=== PATIENT | male | born 1960 | race African-American/Black ===

== ENCOUNTER 2021-04-26 18:25 | Emergency (ER) | payer OTHER ==
[~2021-04-26] VITALS: Ht 167.6 cm; Wt 108.9 kg
--- NOTE | ~2021-04-26 | EMS ---
[facility] [address] [place] [address] EMS Patient Care Report Name: STEPHANIE KEYES Room #: REG FABIO Le#: [id number] Admission: 04/26/21 Attend Phys: Discharge: Date of : 62 Report #: [id number] THIS REPORT FOR: //name// Report Transmitted: 04/26/2021 18:21 EMS Care Summary [place], [place]/[facility] Incident [id number] @ 04/26/2021 17:50 Incident Location [facility] [address] [place] [address] Patient STEPHANIE KEYES Male, 60 Years 1960 Patient Address unknown Patient History None Reported, Patient Allergies No known allergies, Patient Medications None Reported, Chief Complaint alt loc Disposition Transported No Lights/[place] Dispatch Reason Unknown Problem/Person Down Transported To [facility] Narrative ems met [facility] on scene. [facility] stated pt was naked standing alongside [address]. pt found standing upright in driveway and alert. pt alert and confused gcs 14. pt stated he is hot. pt is naked and is holding a pair of shorts in front of his bottom half. pt has no other complaints. pt is only alert to himself. pt did not present consistent with the use of any altering substance. pt was [facility] [address] [place] [address] EMS Patient Care Report Name: STEPHANIE KEYES Room #: REG FABIO Le#: [id number] Admission: 04/26/21 Attend Phys: Discharge: Date of : 62 Report #: [id number] covered with a blanket. pt agreed to be transported to the hospital. [facility] stated they will be performing a cit on pt. pt walked to ambulance. pt was transferred onto ems cot and was secured in a semi fowlers position without incident. pt was loaded into ambulance. pt was transported non emergent. transport was uneventful and pt rested on ems cot. [facility] advised ems that they spoke to people close to pt and was informed pt has an extensive pcp hx. pt care was transferred to appropriate staff and ems goes back in service. pts id was left with staff. Initial Vitals @18:07P: 116,R: 20,BP: 130/66,Pain: 0/10,GCS: 14,Glucose: 90,SpO2: 100,Revised Trauma: 12, @18:20P: 116,R: 20,BP: 124/66,GCS: 14,SpO2: 98,Revised Trauma: 12, Assessments @17:58MENTAL:Confused,SKIN:No Abnormalities,HEENT:Head/Face: No Abnormalities,Eyes: No Abnormalities,Neck/Airway: No Abnormalities,LUNG SOUNDS:General: No Abnormalities,Left Upper: No Abnormalities,Right Upper: No Abnormalities,Left Lower: No Abnormalities,Right Lower: No Abnormalities,ABDOMEN:General: No Abnormalities,Left Upper: No Abnormalities,Right Upper: No Abnormalities,Left Lower: No Abnormalities,Right Lower: No Abnormalities,PELVIS//GI:No Abnormalities,EXTREMITIES:Left Arm: No Abnormalities,Right Arm: No Abnormalities,Left Leg: No Abnormalities,Right Leg: No Abnormalities,PULSE:NEURO:No Abnormalities,@18:09MENTAL:No Abnormalities,SKIN:No Abnormalities,HEENT:Head/Face: No Abnormalities,Eyes: No Abnormalities,Neck/Airway: No Abnormalities,LUNG SOUNDS:General: No Abnormalities,Left Upper: No Abnormalities,Right Upper: No Abnormalities,Left Lower: No Abnormalities,Right Lower: No Abnormalities,ABDOMEN:General: No Abnormalities,Left Upper: No Abnormalities,Right Upper: No Abnormalities,Left Lower: No Abnormalities,Right Lower: No Abnormalities,PELVIS//GI:No Abnormalities,EXTREMITIES:Left Arm: No Abnormalities,Right Arm: No Abnormalities,Left Leg: No Abnormalities,Right Leg: No Abnormalities,PULSE:NEURO:No Abnormalities, Impression Altered Mental Status Procedures @17:58ALS AssessmentResponse: UnchangedSucceeded Timeline 17:50,Call Received 17:50,Dispatch Notified 17:50,Dispatched 17:51,En Route 17:57,[place] [address] EMS Patient Care Report Name: STEPHANIE KEYES Room #: REG FABIO Le#: [id number] Admission: 04/26/21 Attend Phys: Discharge: Date of : 62 Report #: [id number] 17:58,At Patient 17:58,ALS Assessment,Response: UnchangedSucceeded, 18:07,BP: 130/66 M,PULSE: 116,RR: 20 R,SPO2: 100 Ox,ETCO2: ,B,PAIN: 0,GCS: 14, 18:11,Depart Scene 18:20,BP: 124/66 M,PULSE: 116,RR: 20 R,SPO2: 98 Ox,ETCO2: ,BG: ,PAIN: ,GCS: 14, 18:21,At Destination 18:38,Call Closed Disclaimer [email or web address] Copyright 2020 [email or web address] This EMS Care Summary contains data elements from the applicable legal record (which may be displayed differently). It is designed to provide pertinent information for the following purposes: continuity of care, clinical quality, and state data reporting. The complete legal record is available to ED staff and administrators of the receiving hospital in [employer]'s Patient Tracker. All data is provided "as is."
[2021-04-26 18:54] LABS: ABSOLUTE NEUTROPHILS 5.1 thou/uL (1.4-8.2); BASOPHILS 0.5 % (0.0-2.0); EOSINOPHILS 4.2 % (0.0-3.0); HEMATOCRIT 45.9 % (42.0-52.0); HEMOGLOBIN 15.4 gm/dL (14.0-18.0); MCH 30.8 pg (26.0-34.0); MCHC 33.6 g/dL (28.0-37.0); MCV 91.6 fL (80.0-100.0); MONOCYTES 6.3 % (1.0-8.0); PLATELET COUNT 245 thou/uL (150-400); RBC 5.01 mil/uL (4.50-6.00); RDW 14.1 % (10.5-14.5); WBC 6.2 thou/uL (4.0-11.0)
[2021-04-26 18:59] LABS: URINE BILIRUBIN 2+ (Negative); URINE BLOOD TRACE (Negative); URINE CLARITY CLEAR; URINE COLOR YELLOW; URINE GLUCOSE-RANDOM* NEGATIVE (Negative); URINE KETONES 1+ (Negative); URINE LEUKOCYTES-REFLEX TRACE (Negative); URINE NITRITE-REFLEX NEGATIVE (Negative); URINE PROTEIN (DIPSTICK) 2+ (Negative); URINE SPECIFIC GRAVITY >= 1.030 (1.005-1.035)
[2021-04-26 19:01] LABS: ANION GAP 12 mmol/L (7-16); BUN 12 mg/dL (7-18); CHLORIDE 106 mmol/L (98-107); CO2 24 mmol/L (21-32); GLUCOSE 86 mg/dL (74-106); POTASSIUM 3.9 mmol/L (3.5-5.1); SODIUM 142 mmol/L (136-145)
[2021-04-26 19:03] LABS: ICTOTEST (BILI CONFIRMATORY) Negative (Negative)
[2021-04-26 19:06] LABS: APTT 32.6 Seconds (24.5-32.8); INR 0.99; PROTIME 10.8 Seconds (10.5-12.1)
[2021-04-26 19:08] LABS: AMP/METHAMP Negative (Negative); BARBITURATES Negative (Negative); BENZODIAZEPINES Negative (Negative); COCAINE Negative (Negative); METHADONE Negative (Negative); OPIATES Negative (Negative); PCP POSITIVE (Negative)
[2021-04-26 19:10] LABS: CASTS None Seen /LPF (None Seen); SQUAMOUS 0-3 Few /LPF (0-3)
[2021-04-26 19:11] LABS: BACTERIA-REFLEX None Seen /HPF (None Seen); CRYSTALS None Seen /LPF (None Seen); URINE RBC 3-10 Few /HPF (NONE SEEN); URINE WBC-REFLEX 0-5 Rare /HPF (0-5)
[2021-04-26 19:11] LABS: ALBUMIN 3.4 g/dL (3.4-5.0); SGOT 13 U/L (15-37); SGPT 15 U/L (30-65); TOTAL BILIRUBIN 1.7 mg/dL (0.2-1.0); TOTAL PROTEIN 7.2 g/dL (6.4-8.2); TROPONIN-I <0.06 ng/mL (<0.06)
[2021-04-26 20:25] VITALS: BP 127/59
--- NOTE | 2021-04-27 07:09 | EKG ---
[place] [address] [facility] 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[employer]: EDDI : 1960 Requested By: Chery Rosa Order Number: [id number] MD: Sulaiman Hirsch Measurements Intervals [place] Rate: 104 P: 52 CO: 139 QRS: 33 QRSD: 80 T: 53 QT: 334 QTc: 440 Interpretive Statements Sinus tachycardia Left atrial enlargement Baseline wander in lead(s) V3 No previous ECG available for comparison Electronically Signed On 04-27-2021 7:09:22 CDT by Sulaiman Hirsch [email or web address] <ELECTRONICALLY SIGNED> By: Sulaiman Hirsch MD, [facility] 04/27/21 [id number] Sulaiman Hirsch MD, FACC /EPI
== END 2021-04-26 20:25 | disposition home or self-care (01) ==
LOC: ER 18:25
PROVIDERS: Nurse Practitioner Family
DX: F16.10 Hallucinogen abuse, uncomplicated (principal); F32.9 Major depressive disorder, single episode, unspecified; F60.89 Other specific personality disorders; F43.10 Post-traumatic stress disorder, unspecified